=== PATIENT | female | born 1965 | race African-American/Black ===

== ENCOUNTER 2016-03-17 17:07 | Emergency (ER) | payer OTHER ==
[2016-03-17] MEDS ORDERED: ASPIRIN 81 MG TABLET, CHEWABLE PO ONE (17:35)
--- NOTE | 2016-03-17 17:35 | ER Document Report ---
ED Medical Screen (RME) - General Stated Complaint: CHEST PAIN Time seen by provider: 17:34 Notes: 50 yo female c/o swollen and enlarged chest plate, painful to touch today. Dx wtih bronchtiis 2 weeks ago. Taling aluterol, tussin and agmentin. TRAVEL OUTSIDE OF THE [place] IN LAST 30 DAYS: No - Related Data Allergies/Adverse Reactions: No Known Allergies Allergy (Verified 03/17/16 17:33) Past Medical History - Past Medical History Cardiac Medical History: Reports: Hx Hypertension Neurological Medical History: Reports: Hx Migraine Renal/ Medical History: Reports: Hx Ovarian Cysts Past Surgical History: Reports: Hx Appendectomy, Hx Cholecystectomy - Immunizations Hx Diphtheria, Pertussis, Tetanus Vaccination: Yes
[2016-03-17] MEDS ORDERED: IPRATROPIUM/ALBUTEROL 0.5-2.5 MG/3 ML AMPUL NEB ONE (17:37)
[2016-03-17] MEDS ORDERED: ASPIRIN 81 MG TABLET, CHEWABLE ONE (17:57)
[2016-03-17 18:06] LABS: ABSOLUTE BASOPHILS # (AUTO) 0.1 10^3/uL (0.0-0.2); ABSOLUTE EOSINOPHILS # (AUTO) 0.3 10^3/uL (0.0-0.6); ABSOLUTE LYMPHOCYTES (AUTO) 1.4 10^3/uL (0.5-4.7); ABSOLUTE MONOCYTES (AUTO) 0.7 10^3/uL (0.1-1.4); BASOPHILS % (AUTO) 0.7 % (0-2); EOSINOPHILS % (AUTO) 3.2 % (0-6); HEMATOCRIT 37.9 % (36.0-47.0); HEMOGLOBIN 12.5 g/dL (12.0-15.5); HGB HCT DIFFERENCE -0.4; LYMPHOCYTES % (AUTO) 14.7 % (13-45); MEAN CORPUSCULAR HEMOGLOBIN 29.1 pg (27.0-33.4); MEAN CORPUSCULAR VOLUME 88 fl (80-97); RED BLOOD COUNT 4.29 10^6/uL (3.72-5.28); RED CELL DISTRIBUTION WIDTH 13.6 % (11.5-14.0); SEGMENTED NEUTROPHILS % (AUTO) 74.4 % (42-78); WHITE BLOOD COUNT 9.4 10^3/uL (4.0-10.5)
[2016-03-17 18:23] LABS: ALANINE AMINOTRANSFERASE 25 U/L (9-52); ALBUMIN 3.7 g/dL (3.5-5.0); ALKALINE PHOSPHATASE 104 U/L (38-126); ANION GAP 9 (5-19); ASPARTATE AMINO TRANSFERASE 16 U/L (14-36); BILIRUBIN,TOTAL 0.3 mg/dL (0.2-1.3); BLOOD UREA NITROGEN 14 mg/dL (7-20); CALCIUM 9.4 mg/dL (8.4-10.2); CARBON DIOXIDE 28 mmol/L (22-30); CHLORIDE 106 mmol/L (98-107); CREATINE KINASE 55 U/L (30-135); CREATININE RESULT 0.99 mg/dL (0.52-1.25); GLUCOSE 103 mg/dL (75-110); POTASSIUM 3.7 mmol/L (3.6-5.0); SODIUM 143.2 mmol/L (137-145); TOTAL PROTEIN 6.5 g/dL (6.3-8.2)
--- NOTE | 2016-03-17 18:25 | ER Document Report ---
ED Cardiac - General Chief Complaint: Chest Wall Pain Stated Complaint: CHEST PAIN Notes: The patient is a 50-year-old female, past medical history hypertension, presents with 1.5 months of dry cough and 2 months of diffuse chest wall pain. She is now noticing a small amount of swelling at the bottom of her sternum. Her primary care physician has placed her on albuterol, prednisone, azithromycin , Augmentin and Tessalon Perles without much relief of her coughing. She denies recent travel, sick contacts, nausea, vomiting, rash, back pain, leg swelling or sputum. TRAVEL OUTSIDE OF THE [place] IN LAST 30 DAYS: No - Related Data Allergies/Adverse Reactions: No Known Allergies Allergy (Verified 03/17/16 17:33) Past Medical History - General Information source: Patient - Social History Smoking Status: Unknown if Ever Smoked Chew tobacco use (# tins/day): No Frequency of alcohol use: None Drug Abuse: None Family History: Reviewed & Not Pertinent Patient has suicidal ideation: No Patient has homicidal ideation: No - Past Medical History Cardiac Medical History: Reports: Hx Hypertension Neurological Medical History: Reports: Hx Migraine Renal/ Medical History: Reports: Hx Ovarian Cysts Past Surgical History: Reports: Hx Appendectomy, Hx Cholecystectomy - Immunizations Hx Diphtheria, Pertussis, Tetanus Vaccination: Yes Review of Systems - Review of Systems Notes: REVIEW OF SYSTEMS: CONSTITUTIONAL: -fevers, -chills EENT: -eye pain, -difficulty swallowing, -nasal congestion CARDIOVASCULAR: +chest pain, -syncope. RESPIRATORY: +cough, -SOB GASTROINTESTINAL: -abdominal pain, - nausea, -vomiting, -diarrhea GENITOURINARY: -dysuria, -hematuria MUSCULOSKELETAL: -back pain, -neck pain SKIN: -rash or skin lesions. HEMATOLOGIC: -easy bruising or bleeding. LYMPHATIC: -swollen, enlarged glands. NEUROLOGICAL: -altered mental status or loss of consciousness, -headache, - neurologic symptoms PSYCHIATRIC: -anxiety, -depression. ALL OTHER SYSTEMS REVIEWED AND NEGATIVE. Physical Exam - Vital signs Vitals: Temp Pulse Resp BP Pulse Ox 98.8 F 109 H 20 152/87 H 98 03/17/16 17:27 03/17/16 17:27 03/17/16 17:27 03/17/16 17:27 03/17/16 17:27 - Notes Notes: PHYSICAL EXAMINATION: GENERAL: Well-appearing, well-nourished and in no acute distress. HEAD: Atraumatic, normocephalic. EYES: Pupils equal round and reactive to light, extraocular movements intact, sclera anicteric, conjunctiva are normal. ENT: nares patent, oropharynx clear without exudates. Moist mucous membranes. NECK: Normal range of motion, supple without lymphadenopathy LUNGS: Breath sounds clear to auscultation bilaterally and equal. No wheezes, rales or rhonchi. HEART: Regular rate and rhythm without murmurs. Mild tenderness over lower sternum. ABDOMEN: Soft, nontender, normoactive bowel sounds. No guarding, no rebound. No masses appreciated. EXTREMITIES: Normal range of motion, no pitting or edema. No cyanosis. NEUROLOGICAL: Cranial nerves grossly intact. Normal speech, normal gait. Normal sensory, motor, and reflex exams. PSYCH: Normal mood, normal affect. SKIN: Warm, Dry, normal turgor, no rashes or lesions noted. Course - Re-evaluation Re-evalutation: Patient's symptoms atypical for ACS, PE or aortic dissection. HEART score 2. Labs are unremarkable. Chest x-ray does not show any evidence of pneumonia. Patient has Augmentin prescribed to her by her primary care physician. Will add Motrin to help with the sternum pain and honey and humidifier at night to help with her coughing. Will have her follow-up with her primary care physician. Tachycardia resolved on discharge after DuoNeb wore off (HR 98) at 03/17/16 19: 19. - Vital Signs Vital signs: Temp Pulse Resp BP Pulse Ox 98.8 F 109 H 20 152/87 H 98 03/17/16 17:27 03/17/16 17:27 03/17/16 17:27 03/17/16 17:27 03/17/16 17:27 - Laboratory Result Diagrams: 03/17/16 17:58 03/17/16 17:58 - Diagnostic Test Radiology reviewed: Image reviewed, Reports reviewed Radiology results interpreted by me: TRUDY - EKG Interpretation by Me EKG shows normal: Sinus rhythm, [place], Intervals, QRS Complexes, ST-T Waves Discharge - Discharge Clinical Impression: Chest wall pain Condition: Good Disposition: HOME, SELF-CARE Additional Instructions: CHEST PAIN OF UNCLEAR CAUSE: The exact cause of your chest pain isn't clear. Fortunately, there is no evidence of a dangerous medical condition. Further testing may be required to find the source of the pain. Most often, we find that this pain is coming from the chest wall -- the muscles or rib joints in the chest. But chest pain can come from the lung and lung lining, the esophagus, the heart valves or heart lining, and even the stomach or gallbladder. Rest. Eat lightly until the pain is gone. We may prescribe medicine for pain and inflammation. You should call the physician immediately if the pain radiates to the shoulder, jaw or arms; if you start to run a fever or develop a cough; or if you develop shortness of breath, or other new or alarming symptoms. NORMAL EXAM AND WORKUP: At this time, your examination and workup show no significant abnormality. No significant abnormal physical findings were noted. All laboratory, EKG, and imaging (x-ray, CT scans, ultrasound) studies that were ordered show no significant abnormality. Although your examination and all studies that were ordered showed no significant abnormal finding, there are no examinations and no studies that are 100% accurate. There is always the possibility that some abnormality could exist and not be detected with physical examination or within the limits and capabilities of laboratory and other studies. You should return or follow up as you were instructed on your visit today for further evaluation if your symptoms do not resolve. CHEST WALL PAIN: Your chest pain may be coming from the chest wall. This is often caused by straining the muscles or joints in the chest during physical activity, direct trauma, coughing, or vigorous vomiting. Persons with arthritis are especially prone to this type of pain, due to inflammation of the cartilage joints near the breast bone. Occasionally, no cause can be found. Rest from strenuous physical activity. This kind of chest pain is usually made worse by movement of the chest. Depending on the symptoms, we may prescribe medicine for pain, muscle relaxation, and antiinflammatory effects. If the pain is new, and seems to be due to muscle strain, cold packs can help. Otherwise, apply gentle warmth to the painful area for 15 minutes every hour or two. You should call contact the doctor immediately if things change. Further evaluation is needed if you develop a fever or cough, if the nature of the pain changes, or if you become short of breath. FOLLOW-UP CARE: If you have been referred to a physician for follow-up care, call the physician s office for an appointment as you were instructed or within the next two days. If you experience worsening or a significant change in your symptoms, notify the physician immediately or return to the Emergency Department at any time for re-evaluation.
[2016-03-17 18:37] LABS: CREATINE KINASE MB < 0.22 ng/mL (<4.55); TROPONIN I < 0.012 ng/mL
[2016-03-17 19:23] VITALS: BP 119/90
--- NOTE | 2016-03-17 21:42 | EKG REPORT ---
SEVERITY:- OTHERWISE NORMAL ECG - SINUS TACHYCARDIA : Confirmed by: Suze Desai 17-Mar-2016 21:42:00
== END 2016-03-17 19:19 | disposition home or self-care (01) ==
LOC: ER 17:07
DX: R07.89 Other chest pain (principal); I10 Essential (primary) hypertension; R05 Cough
CPT/HCPCS: 93005; 94640; 99285; 36415; 82553; 82550; 85025; 80053; 84484; 71020; 93010; J7620

== ENCOUNTER 2017-12-16 18:41 | Emergency (ER) | payer OTHER ==
--- NOTE | 2017-12-16 19:42 | ER Document Report ---
HPI - HPI Pain Level: 4 Notes: Patient is a 52-year-old female who presents to the ED with 2 complaints. The first being a possible insect bite to her right posterior forearm times 1 week. Patient states that she has noticed some blistering initially which has since resolved, but there remains a small red area without any purulent discharge. She has not noticed any streaks. Patient states that she does have some soreness associated. Patient also complains of a burning sensation tingling to her left lower extremity anteriorly. Patient states that it starts just above her knee and travels down the left anterolateral leg down into the great toe. Patient denies any injury or back pain. She is ambulatory without any difficulties. She has been eating and drinking without any difficulty. She is urinating normally and having normal bowel movements. Denies drug allergies or IV drug use. No history of diabetes. Denies any headache, fever, neck pain, URI, sore throat, chest pain, palpitations, syncope, cough, shortness of breath , wheeze, dyspnea, abdominal pain, nausea/vomiting/diarrhea, urinary retention, dysuria, hematuria, loss of control of bowel or bladder, saddle anesthesia, muscle paralysis/weakness, or rash. - ROS Systems Reviewed and Negative: Yes All other systems reviewed and negative - REPRODUCTIVE Reproductive: DENIES: : Past Medical History - Social History Smoking Status: Never Smoker Family History: Reviewed & Not Pertinent - Past Medical History Cardiac Medical History: Reports: Hx Hypertension Neurological Medical History: Reports: Hx Migraine Renal/ Medical History: Reports: Hx Ovarian Cysts Past Surgical History: Reports: Hx Appendectomy, Hx Cholecystectomy - Immunizations Hx Diphtheria, Pertussis, Tetanus Vaccination: Yes Vertical Provider Document - CONSTITUTIONAL Agree With Documented VS: Yes Notes: PHYSICAL EXAMINATION: GENERAL: Well-appearing, well-nourished and in no acute distress. LUNGS: Breath sounds clear to auscultation bilaterally and equal. No wheezes rales or rhonchi. HEART: Regular rate and rhythm without murmurs, rubs, gallops. ABDOMEN: Soft, nontender, nondistended abdomen. No guarding, no rebound. No masses appreciated. Normal bowel sounds present. No CVA tenderness bilaterally. No pulsatile mass Musculoskeletal: LE's b/l: FROM to passive/active. Strength 5+/5. No deficits noted. No bony tenderness of extremities. I was able to reproduce the burning sensation patient experienced and the tingling in her great toe by pressing near the superficial peroneal nerve to the left lateral leg. There is no erythema, ecchymosis, deformity, or warmth. No lower extremity asymmetry and karen neg b/l. Back: FROM to passive/active. Strength 5+/5. No vertebral point tenderness, stepoffs, or deformities. No other bony tenderness, erythema, swelling, or ecchymosis. SLR negative b/l. No SI jt tenderness. No foot drop Extremities: No cyanosis, clubbing, or edema b/l. Peripheral pulses 2+. Capillary refill less than 2 seconds. NEUROLOGICAL: Normal speech, ataxic gait. Normal sensory, motor exams. Reflexes 2+ b/l. Clonus negative b/l. PSYCH: Normal mood, normal affect. SKIN: There is a small macular erythemic area (approx 1.5cm) to the rt posterior forearm that is minimally tender w/o fluctuance or streaks. No induration. - INFECTION CONTROL TRAVEL OUTSIDE OF THE [place] IN LAST 30 DAYS: No Course - Re-evaluation Re-evalutation: 12/16/17 19:43 Patient is an afebrile, well-hydrated, 52-year-old female who presents to the ED with a very mild cellulitis to the right posterior forearm as well as radiculitis to what I suspect to be the superficial peroneal nerve of the left lower extremity. I was able to reproduce the patient's symptoms with palpation near the superficial peroneal nerve on the anterolateral leg. Vitals are acceptable without any significant tachycardia, tachypnea, or hypoxia. PE is otherwise unremarkable for any neurovascular compromise, obvious tendon/ ligament rupture, obvious fracture/dislocation, septic joint, DVT. Patient is nontoxic-appearing and is tolerating p.o. without difficulties. No incision and drainage is warranted at this time based on H&P. Patient does not have any back pain. Low suspicion for any meningitis, fracture, expanding/ruptured AAA, cauda equina syndrome, epidural mass lesion/abscess, herniated disc causing severe spinal stenosis, or other systemic infection at this time. Patient is aware that this condition can change from initial presentation and that she needs monitor symptoms closely for any acute changes. I will send her home with a prescription for Keflex as well as a prednisone taper. Recheck with your PCM in 3-5 days. Return to the ED with any worsening/concerning symptoms otherwise as reviewed in discharge. Patient is in agreement. - Vital Signs Vital signs: Temp Pulse Resp BP Pulse Ox 98.7 F 78 16 155/85 H 96 12/16/17 18:46 10 18:46 10 18:46 12/16/17 18:46 12/16/17 18:46 Discharge - Discharge Clinical Impression: Radiculitis Cellulitis Qualifiers: Site of cellulitis: extremity Site of cellulitis of extremity: upper extremity Laterality: right Qualified Code(s): L03.113 - Cellulitis of right upper limb Condition: Stable Disposition: HOME, SELF-CARE Additional Instructions: Keep the skin clean Wash with soap and water Tylenol/ibuprofen if needed Triple antibiotic ointment daily Take medication as directed Monitor for any worsening symptoms Rest, Ice, Compression, Elevation Light stretches daily Strength exercises as able Moist heat and massage may help F/u with your PCP in 3-5 days for a recheck Consider consult(s) with Orthopedics/physical therapy for ongoing/worsening symptoms Return to the ED with any worsening symptoms and/or development of fever, headache, chest pain, palpitations, syncope, shortness of breath, trouble breathing, abdominal pain, n/v/d, muscle weakness/paralysis, numbness/tingling, swelling, redness, purulent discharge, red streaks, or other worsening symptoms that are concerning to you. Prescriptions: Cephalexin Monohydrate [Keflex 500 mg Capsule] 500 mg PO TID #30 capsule Prednisone 20 mg PO ASDIR #18 tablet Forms: Elevated Blood Pressure Referrals: [facility] [Provider Group] - Follow up as needed
[2017-12-16 20:38] VITALS: BP 141/77
== END 2017-12-16 20:44 | disposition home or self-care (01) ==
LOC: ER 18:41
DX: L03.113 Cellulitis of right upper limb (principal); M54.10 Radiculopathy, site unspecified; R20.2 Paresthesia of skin; R20.8 Other disturbances of skin sensation; I10 Essential (primary) hypertension
CPT/HCPCS: 99283

== ENCOUNTER → 2018-03-18 | Outpatient (CLI) | payer OTHER ==
--- NOTE | 2018-03-18 20:54 | RADIOLOGY REPORT (SQ) ---
EXAM DESCRIPTION: CT ORBIT/SELLA WITHOUT COMPLETED DATE/TIME: 03/18/2018 8:29 pm REASON FOR STUDY: J01.91 ACUTE RECURRENT SINUSITIS, UNSPECIFIED J01.91 ACUTE RECURRENT SINUSITIS, U NSPECIFIED COMPARISON: None. TECHNIQUE: Noncontrasted images through the facial bones and orbits windowed for bone and soft tissu e. Additional coronal and sagittal reconstructed images reviewed. All images stored on PACS. All CT scanners at this facility use dose modulation, iterative reconstruction, and/or weight based d osing when appropriate to reduce radiation dose to as low as reasonably achievable (ALARA). [facility]: Dose Right [facility]: CareDose [facility]: Dose Right [facility]: Teradose 4D [facility]: Smart Spool RADIATION DOSE: CT Rad equipment meets quality standard of care and radiation dose reduction techniq ues were employed. CTDIvol: 30.4 mGy. DLP: 460 mGy-cm. mGy. LIMITATIONS: None. FINDINGS: FACIAL BONES: No fracture or bone lesion. ORBITS: Intact. No fracture. Symmetric intact globes and retroorbital soft tissues. PARANASAL SINUSES: Generally clear. Only mild mucosal thickening in the maxillary sinuses. No fluid levels. No nasal polyps or masses. Maxillary sinus outlets are patent. SOFT TISSUES: No mass or edema. INFERIOR BRAIN: Limited view. No acute findings. OTHER: No other significant finding. IMPRESSION: No acute or suspicious findings related to the nasal cavity or paranasal sinuses. TECHNICAL DOCUMENTATION: JOB ID: [id number] Quality ID # [id number]: Final reports with documentation of one or more dose reduction techniques (e.g., Au tomated exposure control, adjustment of the mA and/or kV according to patient size, use of iterative reconstruction technique) 2010 [employer]- All Rights Reserved Reading location - IP/workstation name: [email or web address]
== END ==
LOC: RAD 19:48
PROVIDERS: ATTEND Nurse Practitioner Acute Care
DX: J01.91 Acute recurrent sinusitis, unspecified (principal)
CPT/HCPCS: 70480

== ENCOUNTER 2018-04-02 16:04 | Emergency (ER) | payer OTHER ==
[2018-04-02 16:43] VITALS: BP 147/76
[2018-04-02] MEDS ORDERED: KETOROLAC TROMETHAMINE 60 MG/2 ML SDV IM ONE (18:13)
[2018-04-02] MEDS ORDERED: DIAZEPAM 5 MG TABLET PO ONE (18:14)
--- NOTE | 2018-04-02 18:43 | RADIOLOGY REPORT (SQ) ---
EXAM DESCRIPTION: FEMUR RIGHT COMPLETED DATE/TIME: 04/02/2018 6:34 pm REASON FOR STUDY: pain right upper leg COMPARISON: None. NUMBER OF VIEWS: Two views. TECHNIQUE: Two radiographic images acquired of the right femur to include hip and knee in at least o ne projection. LIMITATIONS: None. FINDINGS: MINERALIZATION: Normal. BONES: No acute fracture. No worrisome bone lesions. SOFT TISSUES: No obvious swelling or foreign body. OTHER: No other significant finding. IMPRESSION: NEGATIVE STUDY OF THE RIGHT FEMUR. NO RADIOGRAPHIC EVIDENCE OF ACUTE INJURY. TECHNICAL DOCUMENTATION: JOB ID: [id number] [employer]- All Rights Reserved Reading location - IP/workstation name: [email or web address]
--- NOTE | 2018-04-02 19:31 | ER Document Report ---
HPI - HPI Time Seen by Provider: 04/02/18 17:33 Pain Level: 4 Notes: Patient is a 52-year-old female who presents with chief complaint of anterior right leg pain. Patient reports she was doing some stretches a few days ago and she thinks she over stretched 1 of her muscles. Patient reports the pain has gotten worse over the last day. She reports she is able to ambulate however she has pain running from her anterior right thigh down into her foot at times. She denies any fevers, nausea, vomiting. She denies any numbness, tingling or weakness. - NEURO Neurology: REPORTS: Headache - REPRODUCTIVE Reproductive: DENIES: : - MUSCULOSKELETAL Musculoskeletal: REPORTS: Extremity pain - right lower extremity Past Medical History - General Information source: Patient - Social History Smoking Status: Never Smoker Frequency of alcohol use: None Drug Abuse: None Family History: Reviewed & Not Pertinent Patient has suicidal ideation: No Patient has homicidal ideation: No - Past Medical History Cardiac Medical History: Reports: Hx Hypertension Neurological Medical History: Reports: Hx Migraine Renal/ Medical History: Reports: Hx Ovarian Cysts. Denies: Hx Peritoneal Dialysis Past Surgical History: Reports: Hx Appendectomy, Hx Cholecystectomy - Immunizations Hx Diphtheria, Pertussis, Tetanus Vaccination: Yes Vertical Provider Document - CONSTITUTIONAL Notes: PHYSICAL EXAMINATION: GENERAL: Well-appearing, well-nourished and in no acute distress. HEAD: Atraumatic, normocephalic. EYES: Pupils equal round extraocular movements intact, conjunctiva are normal. ENT: Nares patent NECK: Normal range of motion LUNGS: No respiratory distress Musculoskeletal: Normal range of motion, tenderness to palpation along the anterior right thigh, no swelling, ecchymosis or erythema noted. Normal pulses in lower extremity. Ambulated into the emergency department with a stiff but steady gait. NEUROLOGICAL: Normal speech, normal gait. PSYCH: Normal mood, normal affect. SKIN: Warm, Dry, normal turgor, no rashes or lesions noted. - INFECTION CONTROL TRAVEL OUTSIDE OF THE [place] IN LAST 30 DAYS: No Course - Re-evaluation Re-evalutation: Femur x-ray is negative for any acute findings. Patient reports some relief of her pain after administration of medication here in the emergency department. Likely musculoskeletal strain. Patient will be discharged home with plans to follow-up with primary care. Discussed ED return precautions with patient. - Vital Signs Vital signs: Temp Pulse Resp BP Pulse Ox 98.0 F 78 16 147/76 H 98 04/02/18 16:42 04/02/18 16:42 04/02/18 16:42 04/02/18 16:42 04/02/18 16:42 Discharge - Discharge Clinical Impression: Muscle strain Leg pain, anterior Qualifiers: Laterality: right Qualified Code(s): M79.604 - Pain in right leg Condition: Stable Disposition: HOME, SELF-CARE Additional Instructions: Please take medications as prescribed. Take the copy of the x-ray to your primary care provider when you follow-up. Please do not take ibuprofen while you are taking the Toradol pills. Return to the emergency department if you develop worsening symptoms. Prescriptions: Ketorolac Tromethamine [Toradol 10 mg Tablet] 10 mg PO Q6HP PRN #20 tablet PRN Reason: Diazepam [Valium 5 mg Tablet] 5 mg PO QIDP PRN #12 tablet PRN Reason: Forms: Return to Work Referrals: MARLI CORCORAN FNP [Primary Care Provider] - Follow up as needed
== END 2018-04-02 19:44 | disposition home or self-care (01) ==
LOC: ER 16:04
DX: T14.8XXA Other injury of unspecified body region, initial encounter (principal); X58.XXXA Exposure to other specified factors, initial encounter; M79.651 Pain in right thigh; I10 Essential (primary) hypertension
CPT/HCPCS: 99283; 96372; 73552; J1885

== ENCOUNTER 2018-06-08 19:18 | Emergency (ER) | payer OTHER ==
--- NOTE | 2018-06-08 21:37 | RADIOLOGY REPORT (SQ) ---
EXAM DESCRIPTION: XR HIP 2 OR MORE VIEWS COMPLETED DATE/TME: 06/08/2018 20:33 CLINICAL HISTORY: 52 years, Female, pain COMPARISON: None. NUMBER OF VIEWS: 2 TECHNIQUE: AP pelvis and single view right hip LIMITATIONS: None. FINDINGS: Negative for acute fracture or dislocation. Mild degenerative change of the right hip with joint space narrowing and spur formation. Soft tissues are unremarkable IMPRESSION: Mild degenerative change of the right hip as above copyright 2010 [employer]- All Rights Reserved
[2018-06-09] MEDS ORDERED: KETOROLAC TROMETHAMINE 60 MG/2 ML SDV IM ONE (00:47)
[2018-06-09] MEDS ORDERED: LIDOCAINE 5% (700 MG) TRANSDERMAL ADH..PATCH TP ONE (00:47)
--- NOTE | 2018-06-09 01:02 | ER Document Report ---
ED Hip Pain/Injury - General Chief Complaint: Hip Pain Stated Complaint: HIP PAIN Time Seen by Provider: 06/08/18 23:50 Primary Care Provider: MARLI CORCORAN FNP [Primary Care Provider] - Follow up as needed Notes: Patient is a 52-year-old female that has a history of bilateral hip bursitis who presents with 3 days of progressively worsening right hip pain. The patient states that the pain started gradually, is moderate to severe in nature, has been worsening since onset. Throbbing, aching, constant pain worsened by walking or rotating the leg. Has tried Aleve with only mild improvement. States this feels similar to when she has pulled a ligament or had bursitis in the past. She has not had any direct injury to the area. Denies any surgical history to the area. Last had a joint injection greater than 6 months ago. Has not seen her primary care doctor regarding today's concerns. Denies fever or constitutional symptoms. 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 TRAVEL OUTSIDE OF THE [place] IN LAST 30 DAYS: No - Related Data Allergies/Adverse Reactions: No Known Allergies Allergy (Verified 06/08/18 19:19) Past Medical History - General Information source: Patient - Social History Smoking Status: Never Smoker Frequency of alcohol use: None Drug Abuse: None Lives with: Family Family History: Reviewed & Not Pertinent Patient has suicidal ideation: No Patient has homicidal ideation: No - Past Medical History Cardiac Medical History: Reports: Hx Hypertension Neurological Medical History: Reports: Hx Migraine Renal/ Medical History: Reports: Hx Ovarian Cysts. Denies: Hx Peritoneal Dialysis Past Surgical History: Reports: Hx Appendectomy, Hx Cholecystectomy - Immunizations Hx Diphtheria, Pertussis, Tetanus Vaccination: Yes Review of Systems - Review of Systems Notes: Constitutional: Negative for fever. HENT: Negative for sore throat. Eyes: Negative for visual changes. Cardiovascular: Negative for chest pain. Respiratory: Negative for shortness of breath. Gastrointestinal: Negative for abdominal pain, vomiting or diarrhea. Genitourinary: Negative for dysuria. Musculoskeletal: Positive for right hip and right inguinal crease pain Skin: Negative for rash. Neurological: Negative for headaches, weakness or numbness. 10 point ROS negative except as marked above and in HPI. Physical Exam - Vital signs Vitals: Temp Pulse Resp BP Pulse Ox 98.0 F 81 16 184/100 H 96 06/08/18 19:49 06/08/18 19:49 06/08/18 19:49 06/08/18 19:49 06/08/18 19:49 Interpretation: Hypertensive Notes: PHYSICAL EXAMINATION: GENERAL: Well-appearing, well-nourished and in no acute distress. HEAD: Atraumatic, normocephalic. EYES: Pupils equal round and reactive to light, extraocular movements intact, sclera anicteric, conjunctiva are normal. ENT: nares patent, oropharynx clear without exudates. Moist mucous membranes. NECK: Normal range of motion, supple without lymphadenopathy LUNGS: Breath sounds clear to auscultation bilaterally and equal. No wheezes rales or rhonchi. HEART: Regular rate and rhythm without murmurs ABDOMEN: Soft, moderately obese abdomen nontender, normoactive bowel sounds. No guarding, no rebound. No masses appreciated. Back: No midline spinal tenderness, step-offs or deformities. EXTREMITIES: Normal range of motion, although pain with internal rotation of the right hip. No pain with axial loading of the hip. She is fully able to flex and extend at the knee without difficulty. No visible swelling or deformity to the hip joint. NEUROLOGICAL: No focal neurological deficits. Moves all extremities spontaneously and on command. PSYCH: Normal mood, normal affect. SKIN: Warm, Dry, normal turgor, no rashes or lesions noted. Course - Re-evaluation Re-evalutation: 06/09/18 00:47 No evidence of a septic joint, gout flare, dislocation, or fracture on exam and imaging. Patient has chronic pain to the right hip. No evidence of overlying sialitis. Vitals wnl. At this time, I do not see an indication for labs or further imaging. At this time will discharge with return precautions and follow-up recommendations. Verbal discharge instructions given a the bedside and opportunity for questions given. Medication warnings reviewed. Patient is in agreement with this plan and has verbalized understanding of return precautions and the need for primary care follow-up in the next 24-72 hours. - Vital Signs Vital signs: Temp Pulse Resp BP Pulse Ox 98.0 F 81 16 184/100 H 96 06/08/18 19:49 06/08/18 19:49 06/08/18 19:49 06/08/18 19:49 06/08/18 19:49 - Diagnostic Test Radiology reviewed: Image reviewed, Reports reviewed Radiology results interpreted by me: 06/09/18 00:47 Right hip: No acute fracture or dislocation. Discharge - Discharge Clinical Impression: Right hip pain, Morbid obesity Condition: Good Disposition: HOME, SELF-CARE Additional Instructions: Your x-ray does not show any acute fracture today. You should continue to take anti-inflammatories such as ibuprofen 600 mg every 6 hours. Continue to apply ice to the area is much your able. Please follow-up with your primary care physician if you do not have improving your symptoms in the next 1-2 weeks. Please return immediately if you develop weakness, numbness, spreading redness from the area, or any other symptoms that are concerning to you. Referrals: MARLI CORCORAN FNP [Primary Care Provider] - Follow up as needed
[2018-06-09 01:19] VITALS: BP 164/88
== END 2018-06-09 01:19 | disposition home or self-care (01) ==
LOC: ER 19:18
DX: M25.551 Pain in right hip (principal); M25.552 Pain in left hip; E66.01 Morbid (severe) obesity due to excess calories; I10 Essential (primary) hypertension; Z90.49 Acquired absence of other specified parts of digestive tract
CPT/HCPCS: 99283; 96372; 73502; J1885

== ENCOUNTER → 2018-07-10 | Outpatient (CLI) | payer OTHER ==
--- NOTE | 2018-07-10 15:50 | WOMENS IMAGING REPORT ---
EXAM DESCRIPTION: BILAT SCREENING MAMMO W/CAD COMPLETED DATE/TIME: 07/10/2018 12:01 pm REASON FOR STUDY: Z12.31 ROUTINE BILATERAL SCREENING Z12.31 ENCNTR SCREEN MAMMOGRAM FOR MALIGNANT N EOPLASM OF DARWIN COMPARISON: 2007 TECHNIQUE: Standard craniocaudal and mediolateral oblique views of each breast recorded using Intellocorpa l acquisition. LIMITATIONS: None. FINDINGS: Findings present which are benign by mammographic criteria. No suspicious masses, calcifi cations or architectural distortion. Pertinent benign findings: Benign bilateral breast parenchymal calcifications and left intramammary l ymph node. Read with the assistance of CAD. .[facility] [employer] Version 9.2 Benign mammographic findings may include one or more of the following: Smooth masses, popcorn/rim/co arse calcifications, asymmetries, post-procedure changes, and lesions with long-standing stability. IMPRESSION: BENIGN MAMMOGRAPHIC FINDINGS. BIRADS 2 BREAST DENSITY: b. There are scattered areas of fibroglandular density. BIRAD: 2 BENIGN FINDING(S) RECOMMENDATION: ROUTINE SCREENING COMMENT: The patient has been notified of the results by letter per MQSA requirements. Additional no tification policies are in place for contacting patient with suspicious or incomplete findings. Quality ID #225: The [employer] recommends an annual screening mammogram for women aged 40 years or over. This facility utilizes a reminder system to ensure that all patients receive reminder letters, and/or direct phone calls for appointments. This includes reminders for routine scr eening mammograms, diagnostic mammograms, or other Breast Imaging Interventions when appropriate. Th is patient will be placed in the appropriate reminder system. TECHNICAL DOCUMENTATION: FINDING NUMBER: (1) ASSESSMENT: (1) JOB ID: [id number] [employer]- All Rights Reserved Reading location - IP/workstation name: [email or web address]
== END ==
LOC: WI 11:47
PROVIDERS: ATTEND Family Medicine
DX: Z12.31 Encounter for screening mammogram for malignant neoplasm of breast (principal)
CPT/HCPCS: 77067

== ENCOUNTER → 2018-07-16 | Day surgery (SDC) | payer OTHER ==
--- NOTE | 2018-07-16 15:01 | RADIOLOGY REPORT (SQ) ---
EXAM DESCRIPTION: ARTHRO HIP INJ W/ANESTHESIA; FLUORO/NEEDLE PLACEMENT COMPLETED DATE/TIME: 07/16/2018 2:06 pm REASON FOR STUDY: PAIN IN RIGHT HIP (M25.551) M25.551 PAIN IN RIGHT HIP COMPARISON: Right hip plain films 06/08/2018 FLUOROSCOPY TIME: 20 seconds 1 fluoroscopic digital image saved to PACS. LIMITATIONS: None. PROCEDURE: Procedure, risks, benefits and alternatives explained to patient who then gave written c onsent. The right hip was marked and a time-out was called for correct marking verification. Entry site marked using fluoroscopic guidance. Hip prepped and draped using sterile technique. Local ane sthesia achieved using 5 mL of 1% lidocaine injection. 22 gauge spinal needle introduced into the j oint space under direct fluoroscopic visualization. Non-ionic contrast instilled to confirm intra-ar ticular position. Dilute gadolinium solution then injected. Needle removed and entry site covered with sterile bandage. No immediate complications noted. TECHNIQUE: Digital images acquired during fluoroscopy and stored on PACS. Patient immediately take n to the MR suite for additional imaging. INJECTION LOCATION: Right hip joint space CONTRAST TYPE AND AMOUNT: 1 mL of Isovue 300 was injected to confirm intra-articular needle placement , followed by injection of 10 mL of dilute gadolinium Dotarem/Saline mixture. IMPRESSION: SUCCESSFUL NEEDLE PLACEMENT AND INJECTION FOR RIGHT HIP MR ARTHROGRAM. COMMENT: Quality ID 145: Final reports for procedures using fluoroscopy that document radiation exp osure indices, or exposure time and number of fluorographic images (if radiation exposure indices are not available) TECHNICAL DOCUMENTATION: JOB ID: [id number] [employer]- All Rights Reserved Reading location - IP/workstation name: [email or web address]
--- NOTE | 2018-07-16 15:29 | RADIOLOGY REPORT (SQ) ---
EXAM DESCRIPTION: MRI RT LOWER JOINT WITH COMPLETED DATE/TIME: 07/16/2018 2:24 pm REASON FOR STUDY: PAIN IN RIGHT HIP (M25.551) M25.551 PAIN IN RIGHT HIP COMPARISON: Right hip films 06/08/2018 TECHNIQUE: Post arthrogram imaging is performed using T1 and T1 and T2 fat saturated sequences of th e pelvis and specific hip of interest. LIMITATIONS: None. FINDINGS: JOINT DISTENSION: Adequate. No loose body. BONE MARROW: No edema. No marrow replacement. RIGHT HIP: FEMORAL HEAD, NECK, AND ACETABULUM: No occult fracture. No osteophytes or subchondral cysts. Normal s phericity of femoral head/neck junction. No acetabular dysplasia. No evidence of femoroacetabular imp ingement. LABRUM AND CARTILAGE: No labral tear. Cartilage of normal thickness without delamination. Non-arthrogram LEFT HIP: No joint effusion. No bulky bony spurring. No fracture. No trochanteric bursa inflammation PUBIC RAMI AND ISCHIUM: No occult fracture. SACRUM AND JESIKA: SI joints normal in signal. No occult fracture. EFFUSIONS: None. MUSCLES AND SOFT TISSUES: Adductors and piriformis normal. Abductors and greater trochanteric bursa n ormal without edema or fluid. Iliopsoas bursa without fluid. Hamstring attachments without edema or t ear. PELVIC SOFT TISSUES: No masses or adenopathy. 2 cm uterine fundal fibroid. Ovaries not well seen. SCIATIC NERVE: Identified without masses. OTHER: No other significant finding. IMPRESSION: NORMAL MRI ARTHROGRAM OF THE HIP. TECHNICAL DOCUMENTATION: JOB ID: [id number] [employer]- All Rights Reserved Reading location - IP/workstation name: [email or web address]
== END ==
LOC: RAD 12:29
PROVIDERS: ATTEND Family Medicine
DX: M25.551 Pain in right hip (principal)
CPT/HCPCS: 73722; 77002; 27095; A9576

== ENCOUNTER → 2018-09-22 | Outpatient (CLI) | payer OTHER ==
[2018-09-22 07:31] LABS: HEMATOCRIT 38.5 % (36.0-47.0); HEMOGLOBIN 12.8 g/dL (12.0-15.5); MEAN CORPUSCULAR HEMOGLOBIN 29.5 pg (27.0-33.4); MEAN CORPUSCULAR HGB CONC 33.3 g/dL (32.0-36.0); MEAN CORPUSCULAR VOLUME 89 fl (80-97); PLATELET COUNT 349 10^3/uL (150-450); RED BLOOD COUNT 4.35 10^6/uL (3.72-5.28); RED CELL DISTRIBUTION WIDTH 13.3 % (11.5-14.0)
[2018-09-22 07:44] LABS: APPEARANCE,URINE CLEAR; BILIRUBIN,URINE NEGATIVE (NEGATIVE); COLOR,URINE STRAW; GLUCOSE, URINE NEGATIVE (NEGATIVE); KETONES,URINE NEGATIVE (NEGATIVE); LEUKOCYTE ESTERASE,URINE NEGATIVE (NEGATIVE); NITRITE,URINE NEGATIVE (NEGATIVE); PROTEIN,URINE NEGATIVE (NEGATIVE); URINE SPECIFIC GRAVITY 1.005; UROBILINOGEN,URINE NEGATIVE mg/dL (<2.0)
[2018-09-22 07:56] LABS: ALANINE AMINOTRANSFERASE 23 U/L (9-52); ALBUMIN 3.7 g/dL (3.5-5.0); ALKALINE PHOSPHATASE 111 U/L (38-126); ANION GAP 7 (5-19); ASPARTATE AMINO TRANSFERASE 18 U/L (14-36); BILIRUBIN,DIRECT 0.1 mg/dL (0.0-0.4); BILIRUBIN,TOTAL 0.5 mg/dL (0.2-1.3); BLOOD UREA NITROGEN 14 mg/dL (7-20); CALCIUM 9.2 mg/dL (8.4-10.2); CARBON DIOXIDE 29 mmol/L (22-30); CHLORIDE 105 mmol/L (98-107); GLUCOSE 102 mg/dL (75-110); SODIUM 140.5 mmol/L (137-145); TRIGLYCERIDES 83 mg/dL (<150)
[2018-09-22 08:09] LABS: DIRECT LDL 100 mg/dL (<100)
[2018-09-22 08:15] LABS: ERYTHROCYTE SEDIMENTATION RATE 60 mm/hr (0-30)
[2018-09-23 18:36] LABS: CYTOPLASMIC (C-ANCA) <1:20 titer (Neg:<1:20)
[2018-09-24 07:31] LABS: ATYPICAL PANCA <1:20 titer (Neg:<1:20); PERINUCLEAR (P-ANCA) <1:20 titer (Neg:<1:20)
== END ==
LOC: LAB 07:09
PROVIDERS: ATTEND Internal Medicine
DX: E55.9 Vitamin D deficiency, unspecified (principal); I10 Essential (primary) hypertension; J34.89 Other specified disorders of nose and nasal sinuses; R04.0 Epistaxis; R73.09 Other abnormal glucose
CPT/HCPCS: 36415; 80053; 80061; 81001; 83036; 84443; 85027; 85652; 86021

== ENCOUNTER → 2019-02-15 | Outpatient (CLI) | payer OTHER ==
--- NOTE | 2019-02-15 21:29 | RADIOLOGY REPORT (SQ) ---
EXAM DESCRIPTION: XR CHEST 2 VIEWS COMPLETED DATE/TME: 02/15/2019 00:00 CLINICAL HISTORY: 53 years, Female, (R06.2)WHEEZING COMPARISON: Prior study from 03/17/2016 NUMBER OF VIEWS: Two TECHNIQUE: Frontal and lateral radiographs of the chest were obtained LIMITATIONS: None. FINDINGS: Cardiac and mediastinal contours are stable. Lungs are clear. No pleural effusion or pneumothorax. IMPRESSION: No acute disease. copyright 2010 [employer]- All Rights Reserved
== END ==
LOC: RAD 20:23
PROVIDERS: ATTEND Nurse Practitioner Acute Care
DX: R06.2 Wheezing (principal)
CPT/HCPCS: 71046

== ENCOUNTER 2019-04-18 19:45 | Emergency (ER) | payer OTHER ==
[2019-04-18] MEDS ORDERED: ASPIRIN 81 MG TABLET, CHEWABLE PO ONE (20:25)
--- NOTE | 2019-04-18 20:26 | ER Document Report ---
ED Medical Screen (RME) - General Chief Complaint: Chest Pain Stated Complaint: CHEST PAIN Time Seen by Provider: 04/18/19 20:21 Primary Care Provider: FLORES OVALLE DO [Primary Care Provider] - Follow up as needed Information source: Patient Notes: Patient presents complaining of right-sided chest pain that started yesterday. Patient states pain is been constant. Patient does report some shortness of breath cough and congestion symptoms. Patient states cough has been productive. Patient only reports cough for the past 2 days. Patient does report a history of hypertension. I have greeted and performed a rapid initial assessment of this patient. A comprehensive ED assessment and evaluation of the patient, analysis of test results and completion of the medical decision making process will be conducted by additional ED providers. TRAVEL OUTSIDE OF THE [place] IN LAST 30 DAYS: No - Related Data Allergies/Adverse Reactions: No Known Allergies Allergy (Verified 06/08/18 19:19) Past Medical History - Past Medical History Cardiac Medical History: Reports: Hx Hypertension Neurological Medical History: Reports: Hx Migraine Renal/ Medical History: Reports: Hx Ovarian Cysts. Denies: Hx Peritoneal Dialysis Past Surgical History: Reports: Hx Appendectomy, Hx Cholecystectomy - Immunizations Hx Diphtheria, Pertussis, Tetanus Vaccination: Yes Physical Exam - Vital signs Vitals: Temp Pulse Resp BP Pulse Ox 98.1 F 94 18 168/88 H 97 04/18/19 19:59 04/18/19 19:59 04/18/19 19:59 04/18/19 19:59 04/18/19 19:59 - Respiratory Respiratory status: No respiratory distress - Cardiovascular Rhythm: Regular Heart sounds: S1 appreciated, S2 appreciated Course - Vital Signs Vital signs: Temp Pulse Resp BP Pulse Ox 98.1 F 94 18 168/88 H 97 04/18/19 19:59 04/18/19 19:59 04/18/19 19:59 04/18/19 19:59 04/18/19 19:59 Doctor's Discharge - Discharge Referrals: FLORES OVALLE DO [Primary Care Provider] - Follow up as needed
--- NOTE | 2019-04-18 20:37 | EKG REPORT ---
SEVERITY:- NORMAL ECG - SINUS RHYTHM : Confirmed by: Daly Dexter MD 18-Apr-2019 20:36:48
[2019-04-18 20:50] LABS: ABSOLUTE BASOPHILS # (AUTO) 0.1 10^3/uL (0.0-0.2); ABSOLUTE EOSINOPHILS # (AUTO) 0.2 10^3/uL (0.0-0.6); ABSOLUTE LYMPHOCYTES (AUTO) 1.7 10^3/uL (0.5-4.7); ABSOLUTE MONOCYTES (AUTO) 0.4 10^3/uL (0.1-1.4); ABSOLUTE NEUT (AUTO) 5.5 10^3/uL (1.7-8.2); BASOPHILS % (AUTO) 0.8 % (0-2); EOSINOPHILS % (AUTO) 2.6 % (0-6); HEMOGLOBIN 13.1 g/dL (12.0-15.5); LYMPHOCYTES % (AUTO) 21.7 % (13-45); MEAN CORPUSCULAR HEMOGLOBIN 29.6 pg (27.0-33.4); MEAN CORPUSCULAR HGB CONC 33.7 g/dL (32.0-36.0); MEAN CORPUSCULAR VOLUME 88 fl (80-97); MONOCYTES % (AUTO) 4.8 % (3-13); PLATELET COUNT 326 10^3/uL (150-450); RED BLOOD COUNT 4.44 10^6/uL (3.72-5.28); RED CELL DISTRIBUTION WIDTH 13.8 % (11.5-14.0); SEGMENTED NEUTROPHILS % (AUTO) 70.1 % (42-78); TOTAL CELLS COUNTED % (AUTO) 100 %; WHITE BLOOD COUNT 7.8 10^3/uL (4.0-10.5)
--- NOTE | 2019-04-18 21:00 | RADIOLOGY REPORT (SQ) ---
EXAM DESCRIPTION: X-RAY CHEST TWO VIEWS CLINICAL HISTORY: 53 years, Female, cp COMPARISON: None. FINDINGS: PA and lateral chest radiographs were performed at 2052 hours on 04/18/2019. The lungs are well expanded and clear. The costophrenic sulci are sharp. The cardiac silhouette, hilar regions, trachea, soft tissues and bony structures are unremarkable aside from degenerative changes. Hemoclips in the projection of the angelo hepatis. IMPRESSION: No acute cardiopulmonary disease. Status post cholecystectomy.
[2019-04-18 21:07] LABS: ALKALINE PHOSPHATASE 104 U/L (38-126); ANION GAP 10 (5-19); ASPARTATE AMINO TRANSFERASE 25 U/L (14-36); BILIRUBIN,DIRECT 0.3 mg/dL (0.0-0.4); BILIRUBIN,TOTAL 0.3 mg/dL (0.2-1.3); BLOOD UREA NITROGEN 18 mg/dL (7-20); CALCIUM 9.4 mg/dL (8.4-10.2); CARBON DIOXIDE 27 mmol/L (22-30); CHLORIDE 103 mmol/L (98-107); GLUCOSE 142 mg/dL (75-110); POTASSIUM 3.4 mmol/L (3.6-5.0); TOTAL PROTEIN 7.2 g/dL (6.3-8.2)
[2019-04-18] MEDS ORDERED: ALBUTEROL SULFATE 0.083% NEB 2.5 MG/3 ML AMPUL NEB ONE ×2 (21:14→23:46)
--- NOTE | 2019-04-18 21:16 | ER Document Report ---
Entered by SHONDA FORD SCRIBE 04/18/192053 Acting as scribe for:MAKAYLA ESPINOZA IV, MD ED General - General Chief Complaint: Chest Pain Stated Complaint: CHEST PAIN Time Seen by Provider: 04/18/19 20:21 Primary Care Provider: FLORES OVALLE DO [Primary Care Provider] - Follow up as needed Mode of Arrival: Ambulatory Information source: Patient Notes: This 53 year old female patient presents to the ED today with complaints of right-sided chest pain with radiation to her back for the past x2 days. Patient states that the pain is exacerbated with deep breaths. Patient reports nasal drainage, blood-tinged sputum, and wheezing that has been off and on for the past x1 month. Patient states that she also has green-colored sputum production. Patient states that she received an albuterol inhaler for the wheezing, but reports that it provides no relief. Patient also reports epistaxis for the past x1 year, stating that her PCP hasn't come up with a conclusive reason for her symptoms. Patient denies history of asthma, numbness, tingling, cough, nausea, or vomiting. TRAVEL OUTSIDE OF THE [place] IN LAST 30 DAYS: No - Related Data Allergies/Adverse Reactions: No Known Allergies Allergy (Verified 06/08/18 19:19) Past Medical History - General Information source: Patient - Social History Smoking Status: Never Smoker Cigarette use (# per day): No Chew tobacco use (# tins/day): No Smoking Education Provided: No Family History: Reviewed & Not Pertinent Patient has suicidal ideation: No Patient has homicidal ideation: No - Past Medical History Cardiac Medical History: Reports: Hx Hypertension Neurological Medical History: Reports: Hx Migraine Renal/ Medical History: Reports: Hx Ovarian Cysts Past Surgical History: Reports: Hx Appendectomy, Hx Cholecystectomy - Immunizations Hx Diphtheria, Pertussis, Tetanus Vaccination: Yes Review of Systems - Review of Systems Constitutional: No symptoms reported EENT: See HPI, Nose discharge Cardiovascular: See HPI, Chest pain Respiratory: See HPI, Sputum, Wheezing. denies: Cough Gastrointestinal: See HPI. denies: Nausea, Vomiting Genitourinary: No symptoms reported Female Genitourinary: No symptoms reported Musculoskeletal: No symptoms reported Skin: No symptoms reported Hematologic/Lymphatic: No symptoms reported Neurological/Psychological: See HPI. denies: Numbness, Tingling -: Yes All other systems reviewed and negative Physical Exam - Vital signs Vitals: Temp Pulse Resp BP Pulse Ox 98.1 F 94 18 168/88 H 97 04/18/19 19:59 04/18/19 19:59 04/18/19 19:59 04/18/19 19:59 04/18/19 19:59 - General General appearance: Alert - HEENT Head: Normocephalic, Atraumatic Eyes: Normal Pupils: PERRL - Respiratory Respiratory status: No respiratory distress Chest status: Nontender Breath sounds: Wheezing - Expiratory wheezes in left lung base Chest palpation: Normal - Cardiovascular Rhythm: Regular Heart sounds: Normal auscultation Murmur: No - Abdominal Inspection: Normal Distension: No distension Bowel sounds: Normal Tenderness: Nontender Organomegaly: No organomegaly - Back Back: Normal, Nontender - Extremities General upper extremity: Normal inspection General lower extremity: Normal inspection - Neurological Neuro grossly intact: Yes - Psychological Associated symptoms: Normal affect, Normal mood - Skin Skin Temperature: Warm Skin Moisture: Dry Skin Color: Normal Course - Re-evaluation Re-evalutation: 04/18/19 23:51 Patient states she is feeling better after her albuterol treatment. Results of ED MSE discussed with patient and patient's significant other. All questions were answered prior to discharge. Emergency signs and symptoms, reasons to return to the emergency department discussed with patient and patient's significant other. - Vital Signs Vital signs: Temp Pulse Resp BP Pulse Ox 98.1 F 94 15 145/75 H 96 04/18/19 19:59 04/18/19 19:59 04/18/19 23:01 04/18/19 23:01 04/18/19 23:01 - Laboratory Result Diagrams: 04/18/19 20:32 04/18/19 20:32 Laboratory results interpreted by me: 04/18/19 20:32 Potassium 3.4 L Glucose 142 H - EKG Interpretation by Me Additional EKG results interpreted by me: 04/18/19 23:51 EKG obtained on 04/18/2019 at 1956 hrs. was interpreted by this MD. Findings: Sinus rhythm, rate 95, normal axis, P waves proceed QRS complexes, QRS complexes appear narrow, there are no obvious patterns of ST elevation or depression present to suggest acute myocardial ischemia or infarction. Impression normal sinus rhythm with nonspecific ST segments. Discharge - Discharge Clinical Impression: Acute wheezy bronchitis Condition: Good Disposition: HOME, SELF-CARE Additional Instructions: Return to the Emergency Department without delay if any worse. HOME CARE INSTRUCTIONS & INFORMATION: Thank you for choosing us for your medical needs. We hope you're satisfied with the care you received. After you leave, you must properly care for your problem and, at the same time, observe its progress. Any condition can change. Some illnesses can change rapidly over hours or days. If your condition worsens, return to the Emergency Department or see your physician promptly. ABOUT YOUR X-RAYS AND EKG'S: If you had an EKG or X-rays taken, they have been read by the Emergency Physician. The X-rays and EKG's will also be read by a Radiologist or Title Manager within 24 hours. If discrepancies are noted, you will be notified by telephone. Please be certain the ED has a correct telephone number & address where you can be reached. Also, realize that some fractures or abnormalities do not show up on initial X-rays. If your symptoms continue, see your physician. ABOUT YOUR LABORATORY TEST: If you had laboratory tests, the results have been reviewed by the Emergency Physician. Some test results (for example cultures) may not be available for several days. You will be contacted if any test result shows you need additional treatment. Please be certain the ED has a correct telephone number and address where you can be reached. ABOUT YOUR MEDICATIONS: You will receive instructions on how to take your medicine on the prescription label you receive. Additional information may be provided by the Pharmacy. If you have questions afterwards, call the ED for clarification or further instructions. Some prescribed medications may cause drowsiness. Do not perform tasks such as driving a car or operating machinery without consulting your Pharmacist. If you feel you need a refill of pain medication, your condition will need re-evaluation. Please do not call for a refill of any medication. ABOUT YOUR SIGNATURE: Signature of this document acknowledges to followin. Understanding that you received emergency treatment and that you may be released before al medical problems are known or treated. Please be certain the ED has a correct phone number & address where you can be reached. 2. Acknowledgement that you will arrange for follow-up care as recommended. 3. Authorization for the Emergency Physician to provide information to your follow-up Physician in order to maximize your care. AT ANY TIME, IF YOUR SYMPTOMS CHANGE SIGNIFICANTLY OR WORSEN OR YOU DEVELOP NEW SYMPTOMS, RETURN TO THE EMERGENCY DEPARTMENT IMMEDIATELY FOR RE-EVALUATION. OUR GOAL IS TO PROVIDE EXCELLENT MEDICAL CARE! WE HOPE THAT WE HAVE MET YOUR EXPECTATIONS DURING YOUR EMERGENCY DEPARTMENT VISIT AND THAT YOU FEEL YOU HAVE RECEIVED EXCELLENT CARE! Bronchitis You have acute bronchitis. This disease is an infection or inflammation of the air passageways in your lungs. Symptoms usually include cough, low grade fever, shortness of breath, and wheezing. The cough usually persists for a couple of weeks. Most cases of bronchitis get better without antibiotics. We prescribe antibiotics when we believe bacteria are damaging your airways, or if there's high risk the bronchitis will worsen into pneumonia. Increase your fluid intake. A cool mist humidifier may make your lungs more comfortable. An expectorant (cough medicine that loosens phlegm) can help. If you smoke, STOP!!! Recovery from bronchitis can be somewhat slow, but you should see improvement within a day or two. Repeated episodes of bronchitis may result in lung damage -- for example, chronic bronchitis, recurrent pneumonias, or emphysema. Call the doctor if you develop increasing fever, shortness of breath, chest pain, bloody sputum, or otherwise worsen. If you have not improved at all after several days, contact the physician. Prescriptions: Azithromycin [Zithromax 250 mg Tablet] 250 mg PO DAILY 4 Days #4 tablet Referrals: FLORES OVALLE DO [Primary Care Provider] - Follow up as needed I personally performed the services described in the documentation, reviewed and edited the documentation which was dictated to the scribe in my presence, and it accurately records my words and actions.
[2019-04-18 21:49] LABS: A TYPE INFLUENZA AG NEGATIVE (NEGATIVE); B INFLUENZA AG NEGATIVE (NEGATIVE)
[2019-04-18 21:49] LABS: INTERNATIONAL RATION (INR) 0.99; PROTHROMBIN TIME 13.1 SEC (11.4-15.4)
[2019-04-18 21:50] LABS: PARTIAL THROMBOPLASTIN TIME 34.3 SEC (23.5-35.8)
[2019-04-18 21:52] LABS: D-DIMER 0.34 ug/mL (0.00-0.50)
[2019-04-18] MEDS ORDERED: METHYLPREDNISOLONE INJ 125 MG/2 ML SDV IV ONE (23:46)
[2019-04-18] MEDS ORDERED: KETOROLAC TROMETHAMINE INJ/PF 30 MG/1 ML SDV IV ONE (23:46)
[2019-04-18] MEDS ORDERED: AZITHROMYCIN 250 MG TABLET PO ONE (23:46)
[2019-04-19 00:23] VITALS: BP 143/95
== END 2019-04-19 00:31 | disposition home or self-care (01) ==
LOC: ER 19:45
DX: J20.9 Acute bronchitis, unspecified (principal); R07.9 Chest pain, unspecified; R04.0 Epistaxis; I10 Essential (primary) hypertension; R06.2 Wheezing; Z79.899 Other long term (current) drug therapy
CPT/HCPCS: 93005; 36415; 83690; 85025; 85610; 85730; 80053; 84484; 85379; 87804; 83880; 71046; 93010; J2930; J1885; 94640; 96374; 96375; 99285

== ENCOUNTER 2020-01-22 16:02 | Emergency (ER) | payer OTHER ==
--- NOTE | 2020-01-22 16:23 | ER Document Report ---
ED Medical Screen (RME) - General Chief Complaint: Shortness Of Breath Stated Complaint: SHORTNESS OF BREATH Time Seen by Provider: 01/22/20 16:15 Primary Care Provider: FLORES OVALLE DO [Primary Care Provider] - Follow up as needed Mode of Arrival: Wheelchair Information source: Patient Notes: 54-year-old female presented ED for complaint of shortness of breath. She was diagnosed with the flu on Friday. She states she is now developed cough mucus diarrhea when she coughs she loses her bowels and is not able to keep any food in her stomach because it goes all out as diarrhea. She states she is now having difficulty breathing. She states she has been diagnosed with autoimmune disease and is on Plaquenil. She does go to [facility]. She states she was tested negative for Covid earlier this week but her is positive for Covid. Will retest for Covid as well as other chest. I have greeted and performed a rapid initial assessment of this patient. A comprehensive ED assessment and evaluation of the patient, analysis of test results and completion of medical decision making process will be conducted by an additional ED providers. TRAVEL OUTSIDE OF THE [place] IN LAST 30 DAYS: No - Related Data Allergies/Adverse Reactions: No Known Allergies Allergy (Verified 06/08/18 19:19) Home Medications: plaquinill, zyrtec, losartan Past Medical History - Social History Frequency of alcohol use: None Drug Abuse: None - Past Medical History Cardiac Medical History: Reports: Hx Hypertension Neurological Medical History: Reports: Hx Migraine Renal/ Medical History: Reports: Hx Ovarian Cysts. Denies: Hx Peritoneal Dialysis Past Surgical History: Reports: Hx Appendectomy, Hx Cholecystectomy - Immunizations Hx Diphtheria, Pertussis, Tetanus Vaccination: Yes Physical Exam - Vital signs Vitals: Temp Pulse Resp BP Pulse Ox 100.7 F H 107 H 18 128/69 H 95 01/22/20 16:24 01/22/20 16:24 01/22/20 16:24 01/22/20 16:24 01/22/20 16:24 Course - Vital Signs Vital signs: Temp Pulse Resp BP Pulse Ox 100.7 F H 107 H 21 H 136/56 H 97 01/22/20 16:24 01/22/20 16:24 01/22/20 21:01 01/22/20 21:01 01/22/20 21:01 - Laboratory Result Diagrams: 01/22/20 18:34 01/22/20 18:34 Laboratory results interpreted by me: 01/22/20 01/22/20 01/22/20 18:34 18:34 18:34 RDW 14.1 H Seg Neutrophils % 79.1 H Est GFR (MDRD) Non-Af 51 L AST 65 H ALT 48 H Urine Protein 30 H Urine Urobilinogen 2.0 H Doctor's Discharge - Discharge Clinical Impression: Person under investigation for COVID-19 Condition: Stable Disposition: HOME, SELF-CARE Instructions: COVID-19 Guidance for Persons Under Investigation Additional Instructions: Your symptoms are consistent with COVID-19 infection. Please quarantine as discussed. Zofran as needed for severe nausea. Tylenol for fever and body aches. You can also try wkqn-xef-viimqut supplements such as vitamin C, zinc, and melatonin as directed. Follow-up with your primary care provider next week. If you develop worsening or new concerning symptoms of any sort, please return immediately to the emergency department for evaluation. Referrals: FLORES OVALLE DO [Primary Care Provider] - Follow up as needed
--- NOTE | 2020-01-22 18:00 | RADIOLOGY REPORT (SQ) ---
EXAM DESCRIPTION: CHEST SINGLE VIEW IMAGES COMPLETED DATE/TIME: 01/22/2020 5:40 pm REASON FOR STUDY: short of breath COMPARISON: 04/18/2019 EXAM PARAMETERS: NUMBER OF VIEWS: One view. TECHNIQUE: Single frontal radiographic view of the chest acquired. RADIATION DOSE: NA LIMITATIONS: None. FINDINGS: LUNGS AND PLEURA: Low lung volumes with resultant bronchovascular crowding and bibasilar a telectasis. No focal consolidation, pleural effusion, or pneumothorax evident. MEDIASTINUM AND HILAR STRUCTURES: No masses. Contour normal. HEART AND VASCULAR STRUCTURES: Heart normal in size. Normal vasculature. BONES: No acute findings. HARDWARE: None in the chest. OTHER: No other significant finding. IMPRESSION: Low lung volumes. No discrete radiographic evidence of acute cardiopulmonary abnormalit y. TECHNICAL DOCUMENTATION: JOB ID: [id number] 2010 [employer]- All Rights Reserved Reading location - IP/workstation name: [email or web address]
[2020-01-22 18:53] LABS: ABSOLUTE LYMPHOCYTES (AUTO) 0.9 10^3/uL (0.5-4.7); ABSOLUTE MONOCYTES (AUTO) 0.3 10^3/uL (0.1-1.4); ABSOLUTE NEUT (AUTO) 4.7 10^3/uL (1.7-8.2); BASOPHILS % (AUTO) 0.4 % (0-2); EOSINOPHILS % (AUTO) 0.1 % (0-6); HEMATOCRIT 37.6 % (36.0-47.0); HEMOGLOBIN 12.7 g/dL (12.0-15.5); LYMPHOCYTES % (AUTO) 15.3 % (13-45); MEAN CORPUSCULAR HEMOGLOBIN 28.7 pg (27.0-33.4); MEAN CORPUSCULAR HGB CONC 33.8 g/dL (32.0-36.0); MEAN CORPUSCULAR VOLUME 85 fl (80-97); MONOCYTES % (AUTO) 5.1 % (3-13); PLATELET COUNT 305 10^3/uL (150-450); RED BLOOD COUNT 4.42 10^6/uL (3.72-5.28); RED CELL DISTRIBUTION WIDTH 14.1 % (11.5-14.0); SEGMENTED NEUTROPHILS % (AUTO) 79.1 % (42-78); TOTAL CELLS COUNTED % (AUTO) 100 %
[2020-01-22 18:59] LABS: APPEARANCE,URINE CLEAR; BILIRUBIN,URINE NEGATIVE (NEGATIVE); COLOR,URINE YELLOW; GLUCOSE, URINE NEGATIVE (NEGATIVE); KETONES,URINE NEGATIVE (NEGATIVE); LEUKOCYTE ESTERASE,URINE NEGATIVE (NEGATIVE); NITRITE,URINE NEGATIVE (NEGATIVE); PROTEIN,URINE 30 mg/dL (NEGATIVE); URINE SPECIFIC GRAVITY 1.012
[2020-01-22 19:12] LABS: ALBUMIN 3.9 g/dL (3.5-5.0); ALKALINE PHOSPHATASE 115 U/L (38-126); ANION GAP 11 (5-19); ASPARTATE AMINO TRANSFERASE 65 U/L (14-36); BILIRUBIN,DIRECT 0.3 mg/dL (0.0-0.4); BILIRUBIN,TOTAL 0.9 mg/dL (0.2-1.3); BLOOD UREA NITROGEN 18 mg/dL (7-20); CALCIUM 9.2 mg/dL (8.4-10.2); CARBON DIOXIDE 27 mmol/L (22-30); CHLORIDE 101 mmol/L (98-107); GLUCOSE 87 mg/dL (75-110); POTASSIUM 3.9 mmol/L (3.6-5.0); TOTAL PROTEIN 7.6 g/dL (6.3-8.2)
[2020-01-22] MEDS ORDERED: DEXAMETHASONE SOD PHOSPHATE INJ 4 MG/1 ML VIAL IV ONE (19:37)
[2020-01-22] MEDS ORDERED: ONDANSETRON ODT 4 MG TAB (6 TAB/ER DISP) PO PRN (19:38)
[2020-01-22] MEDS ORDERED: ACETAMINOPHEN 325 MG TABLET PO ONE (19:40)
[2020-01-22] MEDS ORDERED: NORMAL SALINE 1000 ML 1,000 ML IV ONE (19:40)
--- NOTE | 2020-01-22 19:42 | ER Document Report ---
ED General - General Chief Complaint: Shortness Of Breath Stated Complaint: SHORTNESS OF BREATH Time Seen by Provider: 01/22/20 16:15 Primary Care Provider: FLORES OVALLE DO [Primary Care Provider] - Follow up as needed Mode of Arrival: Wheelchair TRAVEL OUTSIDE OF THE [place] IN LAST 30 DAYS: No - HPI Notes: Patient is a 54-year-old female who presents to the emergency department for evaluation. She states has been ill for the last 2 weeks. She has had fever, cough. She is had some nausea[place]. She states she had a negative Covid test. Since then she has continued to feel worse. She has chest pain with coughing and deep breaths. She started having diarrhea over the last several days. Now she cannot smell. Her was recently diagnosed with Covid. - Related Data Allergies/Adverse Reactions: No Known Allergies Allergy (Verified 06/08/18 19:19) Home Medications: plaquinill, zyrtec, losartan Past Medical History - General Information source: Patient - Social History Smoking Status: Never Smoker Frequency of alcohol use: None Drug Abuse: None Family History: Reviewed & Not Pertinent - Past Medical History Cardiac Medical History: Reports: Hx Hypertension Neurological Medical History: Reports: Hx Migraine Endocrine Medical History: Reports: Other - Unknown autoimmune disease, currently on Plaquenil Renal/ Medical History: Reports: Hx Ovarian Cysts. Denies: Hx Peritoneal Dialysis Past Surgical History: Reports: Hx Appendectomy, Hx Cholecystectomy - Immunizations Hx Diphtheria, Pertussis, Tetanus Vaccination: Yes Review of Systems - Review of Systems Constitutional: See HPI EENT: See HPI Cardiovascular: See HPI Respiratory: See HPI Gastrointestinal: See HPI Genitourinary: No symptoms reported Musculoskeletal: Other Skin: No symptoms reported Neurological/Psychological: No symptoms reported -: Yes All other systems reviewed and negative Physical Exam - Vital signs Vitals: Temp Pulse Resp BP Pulse Ox 100.7 F H 107 H 18 128/69 H 95 01/22/20 16:24 01/22/20 16:24 01/22/20 16:24 01/22/20 16:24 01/22/20 16:24 - Notes Notes: Vital signs reviewed, please refer to chart. Head is normocephalic, atraumatic. Pupils equal round, reactive to light. Oral mucosa is moist. Pharynx is mildly erythematous, no exudates noted. Neck is supple without meningismus. Heart is regular rate and rhythm. Lungs are clear to auscultation bilaterally. Abdomen is soft, nontender, normoactive bowel sounds throughout. Extremities without cyanosis, clubbing. Posterior calves are nontender. Peripheral pulses are equal. Skin is warm and dry. Patient is awake, alert, neurological exam is nonfocal. Course - Re-evaluation Re-evalutation: 01/22/20 19:41 Patient presents to the emergency department for evaluation. She was recently told she has influenza. Her symptoms now are most likely secondary to Covid. She is given IV fluids. She is given steroids. She will be sent home with Zofran. Her chest x-ray is unremarkable, her labs are largely unremarkable. She is told to try litt-pgd-zlftndk medications, supplement with vitamin C, zinc, melatonin. She voiced understanding. Otherwise she is to follow-up with her primary care provider next week, return to the ED with worsening or new concerning symptoms of any sort. - Vital Signs Vital signs: Temp Pulse Resp BP Pulse Ox 100.7 F H 107 H 24 H 138/82 H 98 01/22/20 16:24 01/22/20 16:24 01/22/20 18:23 01/22/20 18:23 01/22/20 18:22 - Laboratory Result Diagrams: 01/22/20 18:34 01/22/20 18:34 Laboratory results interpreted by me: 01/22/20 01/22/20 01/22/20 18:34 18:34 18:34 RDW 14.1 H Seg Neutrophils % 79.1 H Est GFR (MDRD) Non-Af 51 L AST 65 H ALT 48 H Urine Protein 30 H Urine Urobilinogen 2.0 H - Diagnostic Test Radiology reviewed: Reports reviewed Radiology results interpreted by me: 01/22/20 19:42 Chest X-Ray 01/22/20 16:20 IMPRESSION: Low lung volumes. No discrete radiographic evidence of acute ca rdiopulmonary abnormality. Discharge - Discharge Clinical Impression: Person under investigation for COVID-19 Condition: Stable Disposition: HOME, SELF-CARE Instructions: COVID-19 Guidance for Persons Under Investigation Additional Instructions: Your symptoms are consistent with COVID-19 infection. Please quarantine as di scussed. Zofran as needed for severe nausea. Tylenol for fever and body aches. You can also try nxtv-ifv-vphlqge supplements such as vitamin C, zinc, and melatonin as directed. Follow-up with your primary care provider next week. If you develop worsening or new concerning symptoms of any sort, please return immediately to the emergency department for evaluation. Referrals: LFORES OVALLE, [Primary Care Provider] - Follow up as needed
[2020-01-22 21:13] VITALS: BP 136/56
== END 2020-01-22 21:20 | disposition home or self-care (01) ==
LOC: ER 16:02
DX: Z20.828 Contact with and (suspected) exposure to other viral communicable diseases (principal); R50.9 Fever, unspecified; R05 Cough; R11.0 Nausea; R07.1 Chest pain on breathing; R06.02 Shortness of breath; R43.9 Unspecified disturbances of smell and taste; R19.7 Diarrhea, unspecified; I10 Essential (primary) hypertension; M35.9 Systemic involvement of connective tissue, unspecified; Z79.899 Other long term (current) drug therapy
CPT/HCPCS: 99284; 96361; 96374; 36415; 87070; 87880; 85025; 87635; 80053; 81001; 71045; J1100; J7030; C9803